=== PATIENT | female | born 1940 | race Caucasian/White ===

== ENCOUNTER 2018-09-17 15:11 | Emergency (ER) | payer MEDICARE ==
[~2018-09-17] VITALS: Ht 152.4 cm; Wt 96.0 kg
[2018-09-17 16:14] LABS: HEMOGLOBIN 9.9 g/dl (12.0-16.0); IMMATURE GRANULOCYTES 0.8 % (0.0-5.0); MEAN CELL VOLUME 95.7 fL CALC (80.0-100.0); MEAN CORPUSCULAR HGB 32.5 pG CALC (26.0-32.0); MEAN CORPUSCULAR HGB CONC 33.9 g/L CALC (32.0-36.0); NEUT# 2.9 thou/uL (2.00-7.15); RED BLOOD COUNT 3.05 mill/uL (4.20-5.60); RED CELL DISTRI WIDTH 13.6 % (11.5-15.5)
[2018-09-17 16:16] LABS: HEMATOCRIT 29.2 % (37.0-47.0)
[2018-09-17 16:18] LABS: URINE BILIRUBIN - DIPSTICK NEGATIVE (NEGATIVE); URINE BLOOD DIPSTICK TRACE-LYSED (NEGATIVE); URINE COLOR YELLOW; URINE GLUCOSE - DIPSTICK NEGATIVE (NEGATIVE); URINE KETONE NEGATIVE (NEGATIVE); URINE LEUK ESTERASE NEGATIVE (NEGATIVE); URINE NITRITE - DIPSTICK NEGATIVE (Negative); URINE PROTEIN - DIPSTICK NEGATIVE (NEG-TRACE); URINE UROBILINOGEN - DIPSTICK 0.2 E.U./dL (0.2)
[2018-09-17 16:28] LABS: ALBUMIN 3.7 g/dL (3.2-5.0); ALKALINE PHOSPHATASE 106 u/l (38-126); ANION GAP 13 (6-22 (CALC)); BILIRUBIN, TOTAL 0.2 mg/dL (0.0-1.4); BUN 10 mg/dL (8-23); BUN/CREATININE RATIO 12 (12-20 (CALC)); CARBON DIOXIDE 26 mmol/l (22-30); CHLORIDE 101 mmol/l (95-108); CREATININE 0.9 mg/dL (0.5-1.0); GFR > 60 ML/MIN (>=60 (CALC)); GFR FOR AFR.AMER. > 60 ML/MIN (>=60 (CALC)); LIPASE 72 u/l (23-300); SGOT/AST 28 u/l (9-36); SODIUM 136 mmol/l (137-146)
[2018-09-17 16:37] LABS: TOTAL PROTEIN 12.4 g/dL (6.3-8.2)
[2018-09-17] MEDS ORDERED: TESSALON PER100 MG PO (17:33)
[2018-09-17 17:44] VITALS: BP 170/71
== END 2018-09-17 17:51 | disposition home or self-care (01) ==
LOC: ED 15:11
DX: S29.012A Strain of muscle and tendon of back wall of thorax, initial encounter (principal); R05 Cough; R50.9 Fever, unspecified

== ENCOUNTER 2022-03-21 10:13 | Inpatient (IN) | payer MEDICARE ==
[2022-03-21] VITALS (91 sets, daily range): BP systolic 66–198; BP diastolic 37–123
[~2022-03-21] VITALS: Ht 152.4 cm; Wt 84.9 kg
[~2022-03-21 10:13] MED LIST: TESSALON PER100 MG PO
[2022-03-21 11:24] LABS: BASO% 0.2 % (0-3); EOS% 0.7 % (0-8); HEMATOCRIT 31.1 % (37.0-47.0); IMMATURE GRANULOCYTES 0.5 % (0.0-5.0); LYMPH% 47.6 % (15-41); MEAN CELL VOLUME 98.7 fL CALC (80.0-100.0); MEAN CORPUSCULAR HGB 34.9 pG CALC (26.0-32.0); MEAN CORPUSCULAR HGB CONC 35.4 g/dL CAL (32.0-36.0); NEUT# 2.66 thou/uL (2.00-7.15); RED BLOOD COUNT 3.15 mill/uL (4.20-5.60); RED CELL DISTRI WIDTH 14.4 % (11.5-15.5)
[2022-03-21 11:40] LABS: ALBUMIN 4.5 g/dL (3.2-5.0); BILIRUBIN, TOTAL 1.1 mg/dL (0.0-1.4); CREATININE 1.7 mg/dL (0.5-1.0); TOTAL PROTEIN 8.7 g/dL (6.3-8.2)
[2022-03-21] MEDS ORDERED: REVLIMID20 MG PO (15:52)
[2022-03-21] MEDS ORDERED: LOVASTATIN10 MG PO (15:54)
[2022-03-21] MEDS ORDERED: AMLODIPINE BESYL5 MG PO (15:55)
[2022-03-21] MEDS ORDERED: TOPROL XL25 MG PO (15:56)
[2022-03-21] MEDS ORDERED: ASPIRIN81 MG PO (15:56)
[2022-03-21] MEDS ORDERED: DIOVAN160 MG PO (15:57)
[2022-03-21 23:27] LABS: URINE BILIRUBIN - DIPSTICK NEGATIVE (NEGATIVE); URINE BLOOD DIPSTICK SMALL (NEGATIVE); URINE COLOR YELLOW; URINE GLUCOSE - DIPSTICK 250 mg/dL (NEGATIVE); URINE KETONE NEGATIVE (NEGATIVE); URINE PH 5.5 (4.5-8.0); URINE PROTEIN - DIPSTICK 30 mg/dL (NEG-TRACE); URINE UROBILINOGEN - DIPSTICK 0.2 E.U./dL (0.2)
[2022-03-21 23:32] LABS: URINE LEUK ESTERASE SMALL (NEGATIVE); URINE NITRITE - DIPSTICK NEGATIVE (Negative)
[2022-03-21 23:33] LABS: URINE HYALINE CAST MANY lpf (NONE-RARE); URINE SQUAMOUS EPITHELIAL CELL FEW EPI/hpf (0-FEW); URINE WBC 20-50 WBC/hpf (0-5)
[2022-03-22] VITALS (80 sets, daily range): BP systolic 74–135; BP diastolic 44–81
[2022-03-22 07:21] LABS: HEMATOCRIT 26.9 % (37.0-47.0); HEMOGLOBIN 9.4 g/dl (12.0-16.0); MEAN CELL VOLUME 98.5 fL CALC (80.0-100.0); MEAN CORPUSCULAR HGB 34.4 pG CALC (26.0-32.0); MEAN CORPUSCULAR HGB CONC 34.9 g/dL CAL (32.0-36.0); RED BLOOD COUNT 2.73 mill/uL (4.20-5.60); RED CELL DISTRI WIDTH 14.5 % (11.5-15.5)
[2022-03-22 09:01] LABS: ALKALINE PHOSPHATASE 68 u/l (38-126); ANION GAP 12 (6-22 (CALC)); BUN 15 mg/dL (8-23); BUN/CREATININE RATIO 15 (12-20 (CALC)); CARBON DIOXIDE 23 mmol/l (22-30); CHLORIDE 104 mmol/l (95-108); GFR FOR AFR.AMER. > 60 ML/MIN (>=60 (CALC)); GFR OTHER RACES 53 ML/MIN (>=60 (CALC)); MAGNESIUM 1.6 mg/dL (1.6-2.3); POTASSIUM 3.4 mmol/l (3.5-5.1); SGOT/AST 98 u/l (9-36); SODIUM 135 mmol/l (137-146)
[2022-03-22 09:03] LABS: ALBUMIN 3.3 g/dL (3.2-5.0); TOTAL PROTEIN 6.7 g/dL (6.3-8.2)
[2022-03-23] VITALS (25 sets, daily range): BP systolic 90–136; BP diastolic 49–74
[2022-03-23 05:57] LABS: HEMATOCRIT 28.3 % (37.0-47.0); HEMOGLOBIN 9.7 g/dl (12.0-16.0); MEAN CELL VOLUME 99.6 fL CALC (80.0-100.0); MEAN CORPUSCULAR HGB 34.2 pG CALC (26.0-32.0); MEAN CORPUSCULAR HGB CONC 34.3 g/dL CAL (32.0-36.0); RED BLOOD COUNT 2.84 mill/uL (4.20-5.60); RED CELL DISTRI WIDTH 14.5 % (11.5-15.5)
[2022-03-23 06:14] LABS: ANION GAP 9 (6-22 (CALC)); BUN 13 mg/dL (8-23); BUN/CREATININE RATIO 15 (12-20 (CALC)); CHLORIDE 101 mmol/l (95-108); CREATININE 0.8 mg/dL (0.5-1.0); GFR FOR AFR.AMER. > 60 ML/MIN (>=60 (CALC)); GFR OTHER RACES > 60 ML/MIN (>=60 (CALC)); MAGNESIUM 1.9 mg/dL (1.6-2.3); SODIUM 138 mmol/l (137-146)
[2022-03-23 06:26] LABS: CARBON DIOXIDE 31 mmol/l (22-30)
[2022-03-24] VITALS (25 sets, daily range): BP systolic 99–145; BP diastolic 57–89
[2022-03-24 06:34] LABS: HEMATOCRIT 27.9 % (37.0-47.0); HEMOGLOBIN 9.4 g/dl (12.0-16.0); MEAN CORPUSCULAR HGB 33.7 pG CALC (26.0-32.0); MEAN CORPUSCULAR HGB CONC 33.7 g/dL CAL (32.0-36.0); RED BLOOD COUNT 2.79 mill/uL (4.20-5.60); RED CELL DISTRI WIDTH 14.7 % (11.5-15.5)
[2022-03-24 07:44] LABS: ALBUMIN 3.2 g/dL (3.2-5.0); ALKALINE PHOSPHATASE 81 u/l (38-126); ANION GAP 11 (6-22 (CALC)); BILIRUBIN, TOTAL 0.9 mg/dL (0.0-1.4); BUN 13 mg/dL (8-23); BUN/CREATININE RATIO 16 (12-20 (CALC)); CARBON DIOXIDE 25 mmol/l (22-30); CHLORIDE 106 mmol/l (95-108); CREATININE 0.8 mg/dL (0.5-1.0); GFR FOR AFR.AMER. > 60 ML/MIN (>=60 (CALC)); GFR OTHER RACES > 60 ML/MIN (>=60 (CALC)); MAGNESIUM 1.7 mg/dL (1.6-2.3); SGOT/AST 114 u/l (9-36); SODIUM 138 mmol/l (137-146); TOTAL PROTEIN 6.9 g/dL (6.3-8.2)
[2022-03-24 08:02] LABS: POTASSIUM 4.1 mmol/l (3.5-5.1)
[2022-03-25] VITALS (22 sets, daily range): BP systolic 116–160; BP diastolic 36–137
[2022-03-25 06:09] LABS: HEMOGLOBIN 9.5 g/dl (12.0-16.0); MEAN CELL VOLUME 103.2 fL CALC (80.0-100.0); MEAN CORPUSCULAR HGB 33.8 pG CALC (26.0-32.0); MEAN CORPUSCULAR HGB CONC 32.8 g/dL CAL (32.0-36.0); RED BLOOD COUNT 2.81 mill/uL (4.20-5.60); RED CELL DISTRI WIDTH 14.8 % (11.5-15.5)
[2022-03-25 06:17] LABS: ALBUMIN 3.2 g/dL (3.2-5.0); ALKALINE PHOSPHATASE 81 u/l (38-126); ANION GAP 9 (6-22 (CALC)); BILIRUBIN, TOTAL 0.8 mg/dL (0.0-1.4); BUN 16 mg/dL (8-23); BUN/CREATININE RATIO 19 (12-20 (CALC)); CARBON DIOXIDE 27 mmol/l (22-30); CHLORIDE 106 mmol/l (95-108); CREATININE 0.8 mg/dL (0.5-1.0); GFR FOR AFR.AMER. > 60 ML/MIN (>=60 (CALC)); GFR OTHER RACES > 60 ML/MIN (>=60 (CALC)); MAGNESIUM 1.9 mg/dL (1.6-2.3); POTASSIUM 4.3 mmol/l (3.5-5.1); SGOT/AST 79 u/l (9-36); SODIUM 138 mmol/l (137-146); TOTAL PROTEIN 6.8 g/dL (6.3-8.2)
[2022-03-25] MEDS ORDERED: DIOVAN160 MG PO (17:46)
[2022-03-25] MEDS ORDERED: ELIQUIS5 MG PO (19:08)
== END 2022-03-25 19:40 | disposition home or self-care (01) | DRG 309 ==
LOC: ED 10:13 → ED-I 12:40 → ED 13:54 → ICU 13:55
PROVIDERS: Emergency Medicine; Internal Medicine; ADMIT Internal Medicine; ATTEND Internal Medicine
PROC: 3E033XZ Introduction of Vasopressor into Peripheral Vein, Percutaneous Approach (ICD-10-PCS; 2022-03-21)
PROC: 3E02340 Introduction of Influenza Vaccine into Muscle, Percutaneous Approach (ICD-10-PCS; principal; 2022-03-24)
DX: I48.91 Unspecified atrial fibrillation (principal); C90.00 Multiple myeloma not having achieved remission; N39.0 Urinary tract infection, site not specified; I13.0 Hypertensive heart and chronic kidney disease with heart failure and stage 1 through stage 4 chronic kidney disease, or unspecified chronic kidney disease; I50.20 Unspecified systolic (congestive) heart failure; I95.9 Hypotension, unspecified; E87.6 Hypokalemia; E11.22 Type 2 diabetes mellitus with diabetic chronic kidney disease; J40 Bronchitis, not specified as acute or chronic; N18.9 Chronic kidney disease, unspecified; E86.0 Dehydration; E78.00 Pure hypercholesterolemia, unspecified; E83.42 Hypomagnesemia; Z23 Encounter for immunization; Z79.899 Other long term (current) drug therapy; Z20.822 Contact with and (suspected) exposure to COVID-19
CPT/HCPCS: J1160; J1644; J3475; Q3014